=== PATIENT | male | born 1955 | race Caucasian/White ===

== ENCOUNTER → 2018-07-14 | Day surgery (SDC) | payer BC ==
[~2018-07-14] MED LIST: ACETAMINOPHEN 1000 MG/100 ML 100 ML IV ONE; AREDS 2 PO; BENADRYL25 M1 PO; BUPIVACAINE HCL 0.5% INJ 30 ML VIAL INJ ONE; CEFAZOLIN SOD 2 GM/D5W 50ML 50 ML IV ONE; CLINDAMYCIN PHOS 900MG/ 50ML 50 ML IV ONE; DEXAMETHASONE SOD PHOS INJ 4 MG/ML VIAL ONE; EPINEPHRINE HCL 1:1000 1ML 1 MG/ML AMP ONE; FENTANYL CITRATE/PF 100MCG/2 ML INJ ONE; FISH OIL 1,0001 EAC2 PO; FLAXSEED1000 MG PO; FLONASE; LIDOCAINE HCL 2% LOCAL INJ 5 ML SDV VIAL INJ ONE; LISINOPRIL40 MG PO; MIDAZOLAM HCL 2 MG/2 ML VIAL ONE; ONDANSETRON HCL INJ 2MG/ML 2ML 2 MG/ML VIAL ONE; PROPOFOL IV EMULSION 10 MG/ML 20 ML VIAL ONE; ROCURONIUM BROMIDE 10 MG/ML 5ML VIAL ONE; SEVOFLURANE INHAL SOLN 250 ML PEN BTL ONE; SIMVASTATIN40 MG PO; SUPER B COMPLEX PO; VITAMIN D3400 UNIT PO; [UNRECOGNIZED DRUG - OTHER] PO
--- OUTSIDE RECORDS SUMMARY | 2018-07-14 09:16 | XMS REPORT ---
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 Allergies, Adverse Reactions, Alerts This patient has no known allergies or adverse reactions. Medications This patient has no known medications. Results Test Description Test Time Test Comments Text Results Atomic Results Result Comments MRI SHOULDER RIGHT WO 2018-06-28 15:06:00 [place] [address] Patient Name: PADDY GEE MR #: [id number] : 1955 Age/Sex: 62/M Req #: [id number] Adm Physician: Ordered by: MARCELINO WILSON MD Report #: [id number] Location: MRI Room/Bed: Procedure: [id number] MRI/MRI SHOULDER RIGHT WO Exam Date: Exam Time: REPORT STATUS: Signed TECHNIQUE: Magnetic resonance imaging of the RIGHT SHOULDER was performed WITHOUT injected contrast. COMPARISON: None available. HISTORY: Pain FINDINGS: MUSCLES AND TENDONS: Rotator Cuff: Tendons: Complex tearing of the rotator cuff with full-thickness component involving the supraspinatus on coronal image 10. Additional partial- thickness bursal surface tearing extending into the infraspinatus coronal image 13 Muscles: No muscle atrophy. Edema with infraspinatus. Biceps Tendon: The long head of the biceps tendon is complex tearing with retracted tendon. GLENOHUMERAL JOINT: Glenoid Labrum: Superior posterior labral fraying. Articular Cartilage: No focal defect. AC JOINT AND ACROMION: No hypertrophic degenerative changes of the acromioclavicular joint. Subacromial spurring. BONE: Osseous contusion to the humeral head. No acute fracture. SOFT TISSUES: Otherwise, the soft tissues appear unremarkable. IMPRESSION: Osseous contusion to the humeral head without fracture. Complex rotator cuff tear with full-thickness component to the supraspinatus. Long head biceps tendon complex tearing with retraction. Signed by: Dr. Roger Mcclendon M.D. on 06/28/2018 3:09 PM Dictated By: ROGER MCCLENDON MD [id number] Transcribed By: NIMA on 06/28/18 1506 COPY TO: MARCELINO WILSON MD
[2018-07-14 15:44] VITALS: BP 121/81
--- NOTE | 2018-07-15 19:06 | Operative Report ---
DATE OF PROCEDURE: 07/14/2018 SURGEON: Abelino Leo MD PREOPERATIVE DIAGNOSES: Right shoulder synovitis, right shoulder rotator cuff tear. POSTOPERATIVE DIAGNOSES: Right shoulder synovitis, right shoulder rotator cuff tear. OPERATION AND PROCEDURE PERFORMED: The patient underwent right shoulder examination under anesthesia, right shoulder debridement of synovitis, right shoulder arthroscopic rotator cuff reconstruction, right shoulder arthroscopic subacromial decompression and acromioplasty. BRIEF DESCRIPTION OF THE PATIENT'S OPERATIVE PROCEDURE: Mr. King was taken to the operating room, placed in the supine position on the operating table. Following induction of general anesthesia as well endotracheal intubation, the patient patient's right upper extremity was examined under anesthesia. He was found to have no significant gross abnormalities. He had full passive range of motion in the shoulder joint. The patient's upper extremity was prepped and draped in standard surgical fashion. Standard posterior lateral and anterior portals were created without difficulty. The scope was placed within the shoulder joint atraumatically and examination of the glenohumeral articulation demonstrated no evidence of arthritis. The biceps tendon was found to be ruptured outside of the shoulder joint. There was synovitis within the shoulder. Examination of the rotator cuff tissue demonstrate a full-thickness rotator cuff tear with mild retraction. A shaver was placed in the shoulder joint and the synovitis was debrided. The insertion site for the rotator cuff was also debrided at this time. The shoulder was deflated with sterile normal saline. Scope was placed in subacromial space and examination of subacromial space demonstrated bursal inflammation. A lateral portal was created from an outside in technique. A bursectomy was performed. The rotator cuff tissue was further evaluated and the patient was found to have a torn rotator cuff with rotator cuff tendon itself was delaminated and also torn within the substance of the tendon. A shaver was used to further debride the insertion site to a bleeding bony bed. The rotator cuff was also debrided at this time and the intratendinous portion was also debrided to allow for better healing. Two suture anchors were inserted into the greater tuberosity of the humerus. Using a grasper and a scorpion suture passer, the delaminated portion of the tendon was pulled forward to full length and the scorpion needle was then used to pass the suture through the tendon capturing both portions of the tendon. All sutures were passed in this fashion. The sutures were then tied firmly and the rotator cuff was advanced into its normal insertion site. This resulted in realignment and reattachment of the rotator cuff tissue into its normal insertion site. The coracoacromial ligament was resected. An acromioplasty was performed. The shoulder was deflated with sterile normal saline. The portal sites were closed using 4-0 nylon suture. The portal sites were then dressed sterilely and the patient was provided a shoulder immobilizer, awakened, and taken to postanesthesia care in stable condition. Monika Bailey acted as rn first assist for this case and was necessary for both prepping and draping the patient as well as positioning the arm and the passage of suture and allowed this case to be successful. MD INDIA Hernández/NELIA /[id number]
== END | disposition home or self-care (01) ==
LOC: OR 09:13
PROVIDERS: ATTEND Specialist
DX: S46.091A Other injury of muscle(s) and tendon(s) of the rotator cuff of right shoulder, initial encounter (principal); M65.811 Other synovitis and tenosynovitis, right shoulder; I10 Essential (primary) hypertension; E78.00 Pure hypercholesterolemia, unspecified; S46.211A Strain of muscle, fascia and tendon of other parts of biceps, right arm, initial encounter; X58.XXXA Exposure to other specified factors, initial encounter; Z88.0 Allergy status to penicillin; Z01.810 Encounter for preprocedural cardiovascular examination
CPT/HCPCS: 29826; 29827; 93005; J0131; J0171; J0690; J1100; J2001; J2250; J2405; J2704

== ENCOUNTER 2018-10-12 16:00 | Outpatient (RCR) | payer BC ==
[~2018-10-12 16:00] MED LIST changes: -ACETAMINOPHEN 1000 MG/100 ML 100 ML IV ONE; -BUPIVACAINE HCL 0.5% INJ 30 ML VIAL INJ ONE; -CEFAZOLIN SOD 2 GM/D5W 50ML 50 ML IV ONE; -CLINDAMYCIN PHOS 900MG/ 50ML 50 ML IV ONE; -DEXAMETHASONE SOD PHOS INJ 4 MG/ML VIAL ONE; -EPINEPHRINE HCL 1:1000 1ML 1 MG/ML AMP ONE; -FENTANYL CITRATE/PF 100MCG/2 ML INJ ONE; -LIDOCAINE HCL 2% LOCAL INJ 5 ML SDV VIAL INJ ONE; -MIDAZOLAM HCL 2 MG/2 ML VIAL ONE; -ONDANSETRON HCL INJ 2MG/ML 2ML 2 MG/ML VIAL ONE; -PROPOFOL IV EMULSION 10 MG/ML 20 ML VIAL ONE; -ROCURONIUM BROMIDE 10 MG/ML 5ML VIAL ONE; -SEVOFLURANE INHAL SOLN 250 ML PEN BTL ONE
== END 2018-10-13 ==
LOC: PT 16:00
PROVIDERS: ATTEND Specialist
DX: M75.101 Unspecified rotator cuff tear or rupture of right shoulder, not specified as traumatic (principal); M25.511 Pain in right shoulder; M25.611 Stiffness of right shoulder, not elsewhere classified; M62.81 Muscle weakness (generalized)
CPT/HCPCS: 97139

== ENCOUNTER 2018-10-19 17:02 | Outpatient (RCR) | payer BC | END 2018-11-13 | LOC: PT 17:02 | PROVIDERS: ATTEND Specialist | DX: M75.101 Unspecified rotator cuff tear or rupture of right shoulder, not specified as traumatic (principal); M25.511 Pain in right shoulder; M25.611 Stiffness of right shoulder, not elsewhere classified; M62.81 Muscle weakness (generalized) | CPT/HCPCS: 97139 ==